=== PATIENT | female | born 1980 ===

== ENCOUNTER 2017-11-17 20:26 | Emergency (ER) | payer SELFPAY ==
[2017-11-17 22:15] VITALS: BP 114/63; PULSE 84; RESP 19; TEMP 102.5; O2SAT 100
[2017-11-17 23:14] LABS: SQUAMOUS EPITHIAL 7 /hpf (0-5); URINE BACTERIA FEW (<OCC); URINE BILIRUBIN NEGATIVE (NEGATIVE); URINE BLOOD MODERATE (NEGATIVE); URINE CLARITY CLOUDY (Clear); URINE COLOR YELLOW (YELLOW); URINE GLUCOSE (UA) NEG (Normal); URINE LEUKOCYTE ESTERASE NEG Leu/uL (Negative); URINE NITRATE NEGATIVE (NEGATIVE); URINE PROTEIN 30 mg/dL (NEGATIVE)
--- NOTE | 2017-11-17 23:59 | ED PDOC ---
HPI: Female Pain Time Seen by Provider: 11/17/17 22:20 Chief Complaint (Nursing): Flu-like Symptoms History Per: Patient Additional Complaint(s): Patient reports flu-like symptoms which started yesterday. Also reports hematuria x 1 week with LLQ discomfort which started a few hours ago. Otherwise : (+) cough, (+) chills, (+) fever, (+) bodyaches, (-) sore throat, (-) SOB, (- ) chest pain, (-) N/V/D, (-) flank pain, (-) other urinary symptoms, (-) recent travel, (+) sick contacts. Past Medical History Vital Signs: Last Vital Signs Temp 102.5 F H 11/17/17 22:09 Pulse 84 11/17/17 22:09 Resp 19 11/17/17 22:09 BP 114/63 11/17/17 22:09 Pulse Ox 100 11/17/17 22:09 - Medical History PMH: No Chronic Diseases - Surgical History Surgical History: - Family History Family History: States: Unknown Family Hx - Immunization History Hx Tetanus Toxoid Vaccination: No Hx Influenza Vaccination: No Hx Pneumococcal Vaccination: No - Home Medications Home Medications: Ambulatory Orders Medication Instructions Recorded Albuterol/Ipratropium [Duoneb 3 3 ml IH Q6 #20 neb 11/16/16 MG/3 Ml-0.5 MG/3 Ml 3 Ml] Azithromycin [Z-Maycol] 250 mg PO DAILY #6 tab 11/16/16 Dicyclomine [Dicyclomine HCl] 10 mg PO QID #14 cap 11/16/16 Ondansetron ODT [Zofran ODT] 1 odt PO BID PRN #6 odt 11/16/16 Ibuprofen [Motrin Tab] 600 mg PO QID PRN #20 tab 11/17/17 Oseltamivir Phosphate [Tamiflu] 75 mg PO BID #10 capsule 11/17/17 - Allergies Allergies/Adverse Reactions: Allergies Allergy/AdvReac Type Severity Reaction Status Date / Time No Known Allergies Allergy Verified 11/17/17 22:08 Review of Systems Constitutional: Positive for: Fever, Chills, Malaise ENT: Negative for: Ear Pain, Mouth Pain, Throat Pain Cardiovascular: Negative for: Chest Pain, Palpitations Respiratory: Positive for: Cough. Negative for: Shortness of Breath Gastrointestinal: Positive for: Abdominal Pain. Negative for: Nausea, Vomiting Genitourinary Female: Positive for: Hematuria. Negative for: Dysuria, Frequency , Vaginal Discharge Musculoskeletal: Negative for: Neck Pain, Arm Pain Skin: Negative for: Rash, Lesions Physical Exam - Physical Exam Comments: GENERAL APPEARANCE: Patient is awake, alert, oriented x 3, in no acute distress. SKIN: Warm, dry; (-) cyanosis, (-) rash. (-) Decubitus Ulcer EYES: (-) conjunctival pallor, (-) scleral icterus, (-) conjunctival hemorrhage. ENMT: Mucous membranes moist. TMs: (-) erythema. Airway patent: (-) stridor. Pharynx: (-) erythema, (-) exudate. NECK: (-) tenderness, (-) stiffness, (-) meningismus, (-) lymphadenopathy. CHEST AND RESPIRATORY: (-) accessory muscle use. Lungs: (-) rales, (-) rhonchi, (-) wheezes, (-) rub; breath sounds equal bilaterally. HEART AND CARDIOVASCULAR: (-) irregularity; (-) murmur, (-) gallop, (-) rub. ABDOMEN AND GI: Soft; (-) tenderness, (-) guarding; (-) organomegaly; (-) mass ; (-) CVA tenderness. EXTREMITIES: (-) deformity; (-) cellulitis, (-) lymphangitis; (-) subungual hemorrhage; (-) edema. NEURO AND PSYCH: Mental status as above; (-) focal findings. - ECG O2 Sat by Pulse Oximetry: 100 Medical Decision Making Medical Decision Making: Rapid flu : (+) UA : (+) blood, (-) evidence of UTI Uhcg : (-) On reevaluation, patient is sitting comfortably in a chair in no acute distress. On exam, neck is supple with no signs of meningismus, abdomen remained soft with no tenderness, no CVA tenderness. Diagnostic results discussed the patient in great detail. Diagnosis of influenza discussed the patient. Given a doze of tamilfu 75 mg PO. Advised to drink plenty of fluids, bedrest, Motrin as needed for fever. Advised to follow- up blood that is noted in her urine with the clinic or her PMD if she has one. Advised to follow up with the clinic in 1-2 days without fail. Advised to take medication as prescribed. Return to the emergency room at any time for any new or worsening symptoms. Patient states she fully agrees with and understands discharge instructions. States that she agrees with the plan and disposition. Verbalized and repeated discharge instructions and plan. I have given the patient opportunity to ask any additional questions. Disposition - Clinical Impression Clinical Impression: Influenza, Hematuria Counseled Patient/Family Regarding: Studies Performed, Diagnosis, Need For Followup, Rx Given - Disposition Referrals: [facility] [Outside] Disposition: Routine/Home Disposition Time: 23:00 Condition: STABLE Additional Instructions: Thank you for letting us take care of you today. You were treated for influenza , hematuria. The emergency medical care you received today was directed at your acute symptoms. If you were prescribed any medication, please fill it and take as directed. It may take several days for your symptoms to resolve. Return to the Emergency Department if your symptoms worsen, do not improve, or if you have any other problems. Please contact your doctor in 2 days for re-evaluation and follow up / or call one of the physicians/clinics you have been referred to that are listed on the Patient Visit Information form that is included in your discharge packet. Bring any paperwork you were given at discharge with you along with any medications you are taking to your follow up visit. Our treatment cannot replace ongoing medical care by a primary care provider (PCP) outside of the emergency department. Thank you for allowing the [email or web address] team to be part of your care today. 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
== END 2017-11-18 00:34 | disposition home or self-care (01) ==
LOC: H.ER 20:26
DX: J11.1 Influenza due to unidentified influenza virus with other respiratory manifestations (principal); R31.9 Hematuria, unspecified